=== PATIENT | female | born 1940 | race Asian ===

== ENCOUNTER 2019-11-23 20:05 | Inpatient (IN) | payer OTHER ==
[~2019-11-23] VITALS: Ht 160 cm; Wt 60.0 kg
[2019-11-23 21:55] LABS: BASOPHIL % 0.1 % (0-2); PLATELET COUNT 223 x10^3mcL (130-400); RED CELL DISTRIBUTION WIDTH 13.3 % (11.5-14.5)
[2019-11-23 22:26] LABS: SODIUM SERUM 142 mmol/L (136-145)
[2019-11-23 22:27] LABS: ALKALINE PHOSPHATASE 74 U/L (46-116); ALT/SGPT 16 U/L (14-59); AST/SGOT 17 U/L (15-37); CALCIUM 9.9 mg/dL (8.5-10.1); CARBON DIOXIDE 30.6 mmol/L (21-32); CHLORIDE SERUM 103 mmol/L (98-107); CREATININE SERUM 0.9 mg/dL (0.6-1.0); GLUCOSE SERUM 130 mg/dL (74-106)
[2019-11-23 22:29] LABS: POTASSIUM SERUM 2.9 mmol/L (3.5-5.1)
[2019-11-24] MEDS ORDERED: COZAAR25 M1 PO (01:33)
[2019-11-24] MEDS ORDERED: MEMANTINE HCL10 MG PO (01:34)
[2019-11-24] MEDS ORDERED: ASPIRIN CHILDRE81 MG PO (01:34)
[2019-11-24] MEDS ORDERED: SIMVASTATIN40 M1 PO (01:34)
[2019-11-24 01:59] LABS: T3 TOTAL 1.15 ng/mL
[2019-11-24 02:01] VITALS: BP 143/70
[2019-11-24 02:07] LABS: CHOLESTEROL/HDL RATIO 3.5
[2019-11-24 02:20] LABS: FREE T4 1.41 ng/dL (0.76-1.46); FREE THYROXINE INDEX 4.9 ug/dL (1.4-4.5); T4(THYROXINE) 13.9 ug/dL (4.7-13.3)
[2019-11-24 04:32] LABS: UA SPECIFIC GRAVITY >=1.030 (1.005-1.035); microscopic required? YES; urine erythrocyte NEGATIVE (NEGATIVE)
[2019-11-24 06:37] VITALS: BP 139/83
[2019-11-24 07:07] LABS: BASOPHIL % 0.2 % (0-2); PLATELET COUNT 195 x10^3mcL (130-400); RED CELL DISTRIBUTION WIDTH 12.9 % (11.5-14.5)
[2019-11-24 07:56] LABS: CALCIUM 9.9 mg/dL (8.5-10.1); CARBON DIOXIDE 29.3 mmol/L (21-32); CHLORIDE SERUM 104 mmol/L (98-107); CREATININE SERUM 0.8 mg/dL (0.6-1.0); GLUCOSE SERUM 95 mg/dL (74-106); MAGNESIUM 2.8 mg/dL (1.8-2.4); POTASSIUM SERUM 3.3 mmol/L (3.5-5.1); SODIUM SERUM 142 mmol/L (136-145)
[2019-11-24 18:49] VITALS: BP 139/72
[2019-11-24 21:22] VITALS: BP 137/56
[2019-11-25] VITALS (7 sets, daily range): BP systolic 134–185; BP diastolic 70–102
[2019-11-25 07:53] LABS: BASOPHIL % 0.6 % (0-2); PLATELET COUNT 177 x10^3mcL (130-400); RED CELL DISTRIBUTION WIDTH 12.8 % (11.5-14.5)
[2019-11-25 08:35] LABS: CARBON DIOXIDE 26.1 mmol/L (21-32); CHLORIDE SERUM 108 mmol/L (98-107); GLUCOSE SERUM 78 mg/dL (74-106); POTASSIUM SERUM 3.7 mmol/L (3.5-5.1); SODIUM SERUM 142 mmol/L (136-145)
[2019-11-25 08:36] LABS: CALCIUM 8.9 mg/dL (8.5-10.1); CREATININE SERUM 0.8 mg/dL (0.6-1.0); PHOSPHOROUS 3.2 mg/dL (2.5-4.9)
[2019-11-26] VITALS (8 sets, daily range): BP systolic 114–158; BP diastolic 55–82
[2019-11-26 07:07] LABS: CALCIUM 9.7 mg/dL (8.5-10.1); CARBON DIOXIDE 26.1 mmol/L (21-32); CHLORIDE SERUM 107 mmol/L (98-107); CREATININE SERUM 0.8 mg/dL (0.6-1.0); GLUCOSE SERUM 78 mg/dL (74-106); PHOSPHOROUS 3.6 mg/dL (2.5-4.9); POTASSIUM SERUM 3.8 mmol/L (3.5-5.1); SODIUM SERUM 141 mmol/L (136-145)
[2019-11-26 07:25] LABS: BASOPHIL % 0.8 % (0-2); PLATELET COUNT 181 x10^3mcL (130-400); RED CELL DISTRIBUTION WIDTH 12.8 % (11.5-14.5)
[2019-11-27 06:11] VITALS: BP 118/69
[2019-11-27 06:15] VITALS: BP 118/69
[2019-11-28 11:37] VITALS: Ht 160 cm; Wt 60.0 kg
== END 2019-11-27 08:04 | disposition short-term general hospital (02) | DRG 551 ==
LOC: ED 20:05 → MU 11-24 00:31 → DU 11-24 00:31 → MU 11-24 14:03 → DU 11-25 10:19
PROVIDERS: Emergency Medicine; ADMIT Student in an Organized Health Care Education/Training Program
DX: S22.088A Other fracture of T11-T12 vertebra, initial encounter for closed fracture (principal); I71.01 Dissection of thoracic aorta; N39.0 Urinary tract infection, site not specified; I71.4 Abdominal aortic aneurysm, without rupture; I71.2 Thoracic aortic aneurysm, without rupture; E86.0 Dehydration; E87.6 Hypokalemia; E83.42 Hypomagnesemia; E78.5 Hyperlipidemia, unspecified; I10 Essential (primary) hypertension; F03.90 Unspecified dementia, unspecified severity, without behavioral disturbance, psychotic disturbance, mood disturbance, and anxiety; F17.210 Nicotine dependence, cigarettes, uncomplicated; Z68.20 Body mass index [BMI] 20.0-20.9, adult; W17.89XA Other fall from one level to another, initial encounter; Y93.89 Activity, other specified; Y92.018 Other place in single-family (private) house as the place of occurrence of the external cause
CPT/HCPCS: 84439; 97116-GP; G0378; J0360; J0696; J0744; J1885; J2405; J3475; J3480; J7030; Q9967